=== PATIENT | female | born 2000 ===

== ENCOUNTER 2020-11-09 10:57 | Inpatient (IN) | payer MEDICAID ==
[~2020-11-09] VITALS: Ht 165.1 cm; Wt 90.0 kg
[2020-11-09] MEDS ORDERED: FENTANYL PF 100 MCG/2ML IVPush PRN (12:00)
[2020-11-09] MEDS ORDERED: TERBUTALINE 1 MG/ML, 1ML SQ PRN (12:00)
[2020-11-09] MEDS ORDERED: FENTANYL PF 100 MCG/2ML IV PRN (12:00)
[2020-11-09] MEDS ORDERED: OXYTOCIN 30U/ 0.9% NaCL 500ML 500 ML IV PRN (12:00)
[2020-11-09] MEDS ORDERED: CALCIUM CARBONATE 500 MG TAB.CHEW PO PRN (12:00)
[2020-11-09] MEDS ORDERED: TERBUTALINE 1 MG/ML, 1ML IVPush PRN (12:00)
[2020-11-09] MEDS ORDERED: ONDANSETRON 2MG/ML, 2ML IVPush PRN ×3 (12:00→22:00)
[2020-11-09] MEDS ORDERED: OXYTOCIN 30U/ 0.9% NaCL 500ML 500 ML IV ONE (12:00)
[2020-11-09] MEDS ORDERED: D5%-LACTATED RINGERS 1,000 ML IV SCH (12:00)
[2020-11-09] MEDS ORDERED: NEWBORN KIT ONE (12:06)
[2020-11-09 12:08] LABS: BASOPHILS % (AUTO) 0 % (0-1); EOSINOPHILS % (AUTO) 1 % (1-7); LYMPHOCYTES % (AUTO) 7 % (22-44); MEAN CORPUSCULAR HEMOGLOBIN 29.7 pg (27.0-34.8); MEAN CORPUSCULAR HGB CONC 33.3 g/dL (32.4-35.8); MEAN PLATELET VOLUME 9.9 fL (7.4-10.4); MONOCYTES % (AUTO) 7 % (2-9); NEUTROPHILS % (AUTO) 85 % (42-75); PLATELET COUNT 210 x10^3/uL (130-400); RED BLOOD COUNT 4.62 x10^6/uL (3.82-5.3); RED CELL DISTRIBUTION WIDTH 13.2 % (9.6-15.2)
[2020-11-09 12:14] LABS: ALANINE AMINOTRANSFERASE 16 U/L (12-78); ALBUMIN 2.8 g/dL (3.4-5.0); ANION GAP 6 mmol/L (5-15); BILIRUBIN, DIRECT 0.1 mg/dL (0.1-0.2); CALCIUM 9.4 mg/dL (8.5-10.1); CHLORIDE 105 mmol/L (98-107); CREATININE 0.44 mg/dL (0.55-1.02)
[2020-11-09 12:15] LABS: ALKALINE PHOSPHATASE 273 U/L (45-117); BILIRUBIN,TOTAL 0.4 mg/dL (0.2-1.0); TOTAL PROTEIN 7.3 g/dL (6.4-8.2)
[2020-11-09] MEDS: LACTATED RINGERS 1,000 ML IV SCH ×2 (12:27→14:53)
[2020-11-09 12:28] LABS: MICROSCOPIC NOT IND
[2020-11-09 12:32] LABS: AMPHETAMINE SCREEN, URINE Negative (Negative); BARBITURATE SCREEN, URINE Negative (Negative); BENZODIAZEPINE SCREEN, URINE Negative (Negative); CANNABINOID SCREEN, URINE Positive (Negative); COCAINE SCREEN, URINE Negative (Negative); METHADONE SCREEN, URINE Negative (Negative); OPIATE SCREEN, URINE Negative (Negative); PROTEIN/CREATININE RATIO,URINE 503 (0-200); TOTAL PROTEIN,URINE RANDOM 23 mg/dL (0-12)
[2020-11-09 12:33] LABS: MD SCAN
[2020-11-09 12:35] VITALS: BP 135/91
[2020-11-09] MEDS ORDERED: FENTANYL/BUPIV./NS/PF 250 ML EPIDCONT ONE (14:53)
[2020-11-09] MEDS ORDERED: BUPIVACAINE 0.25% ONE (14:53)
[2020-11-09] MEDS ORDERED: NALOXONE 0.4 MG/ML, 1ML IVPush PRN (15:30)
[2020-11-09] MEDS ORDERED: DIPHENHYDRAMINE 50 MG/ML, 1ML IVPush PRN (15:30)
[2020-11-09] MEDS ORDERED: LACTATED RINGERS 1,000 ML IV SCH ×3 (15:30→20:30)
[2020-11-09] MEDS ORDERED: EPHEDRINE 50 MG/ML, 1ML IVPush PRN (15:30)
[2020-11-09] MEDS ORDERED: FENTANYL/BUPIV./NS/PF 250 ML EPIDCONT SCH (15:30)
[2020-11-09] MEDS ORDERED: LACTATED RINGERS 1,000 ML IVBOLUS PRN (16:30)
[2020-11-09] MEDS ORDERED: LACTATED RINGERS 1,000 ML INTUTE SCH (18:30)
[2020-11-09] MEDS ORDERED: LACTATED RINGERS 1,000 ML INTUTE PRN (18:30)
[2020-11-09] MEDS ORDERED: METOCLOPRAMIDE 5 MG/ML, 2ML ONE (18:35)
[2020-11-09] MEDS ORDERED: SODIUM CITRATE/CITRIC ACID 15 ML UDC ONE (18:35)
[2020-11-09] MEDS ORDERED: LIDOCAINE/MPF 2%-EPI 1:200K, 20 ML ONE (18:44)
[2020-11-09] MEDS ORDERED: AZITHROMYCIN 500 MG in SODIUM CHLORIDE 0.9% 250 ML IV ONE (19:00)
[2020-11-09] MEDS ORDERED: LACTATED RINGERS 1,000 ML IVBOLUS ONE (19:00)
[2020-11-09] MEDS ORDERED: SODIUM CITRATE/CITRIC ACID 30 ML UDC PO ONE (19:00)
[2020-11-09] MEDS ORDERED: METOCLOPRAMIDE 5 MG/ML, 2ML IV ONE (19:00)
[2020-11-09] MEDS ORDERED: morphine SULFATE/PF 0.5 MG/ML, 10ML ONE (19:19)
[2020-11-09] MEDS ORDERED: CEFAZOLIN 1,000 MG ONE (19:20)
[2020-11-09] MEDS ORDERED: ONDANSETRON 2MG/ML, 2ML ONE (19:20)
[2020-11-09] MEDS ORDERED: DEXAMETHASONE 4 MG/ML, 1ML ONE (19:20)
[2020-11-09] MEDS ORDERED: SODIUM CHLORIDE FLUSH 0.9%, 20 ML ONE (19:20)
[2020-11-09] MEDS ORDERED: OXYTOCIN 10 UNITS/ML, 1ML ONE (19:20)
[2020-11-09] MEDS ORDERED: KETOROLAC 30 MG/1 ML ONE (19:20)
[2020-11-09] MEDS ORDERED: OXYTOCIN 30U/ 0.9% NaCL 500ML 500 ML IV SCH (20:30)
[2020-11-09] MEDS ORDERED: KETOROLAC 30 MG/1 ML IV SCH (20:30)
[2020-11-09] MEDS ORDERED: SIMETHICONE 80 MG CHEW TAB PO PRN (20:30)
[2020-11-09] MEDS ORDERED: ONDANSETRON 2MG/ML, 2ML IV PRN (20:30)
[2020-11-09] MEDS ORDERED: BISACODYL 10 MG SUPP PR PRN (20:30)
[2020-11-09] MEDS ORDERED: MISOPROSTOL 200 MCG TABLET PR PRN (20:30)
[2020-11-09] MEDS ORDERED: GLYCERIN ADULT SUPP PR PRN (20:30)
[2020-11-09] MEDS ORDERED: METOCLOPRAMIDE 5 MG/ML, 2ML IV PRN (20:30)
[2020-11-09] MEDS ORDERED: ACETAMINOPHEN 325 MG TABLET PO PRN ×2 (20:30)
[2020-11-09 21:58] VITALS: BP 118/70
[2020-11-09] MEDS ORDERED: morphine SULFATE 10 MG/ML, 1ML IVPush PRN ×2 (22:00)
[2020-11-09] MEDS ORDERED: OXYcodone/APAP 5/325MG TABLET PO PRN (22:00)
[2020-11-09] MEDS ORDERED: NO SEDATIVES, TRANQUILIZERS OR ANTIEMETICS XX SCH (22:00)
[2020-11-09] MEDS ORDERED: NALOXONE 0.4 MG/ML, 1ML IV PRN (22:00)
[2020-11-09] MEDS: OXYcodone/APAP 5/325MG TABLET PO PRN (23:01)
[2020-11-09 23:41] VITALS: BP 149/83
[2020-11-10] MEDS: DIPHENHYDRAMINE 50 MG/ML, 1ML IV PRN ×3 (00:55→13:49)
[2020-11-10] MEDS: KETOROLAC 30 MG/1 ML IVPush SCH ×4 (01:58→20:13)
[2020-11-10 03:42] VITALS: BP 135/75
[2020-11-10 03:43] LABS: BASOPHILS % (AUTO) 0 % (0-1); EOSINOPHILS % (AUTO) 0 % (1-7); LYMPHOCYTES % (AUTO) 3 % (22-44); MEAN CORPUSCULAR HEMOGLOBIN 29.3 pg (27.0-34.8); MEAN CORPUSCULAR HGB CONC 32.6 g/dL (32.4-35.8); MEAN PLATELET VOLUME 9.8 fL (7.4-10.4); MONOCYTES % (AUTO) 5 % (2-9); NEUTROPHILS % (AUTO) 91 % (42-75); PLATELET COUNT 201 x10^3/uL (130-400); RED BLOOD COUNT 3.92 x10^6/uL (3.82-5.3)
[2020-11-10 04:08] LABS: MD SCAN
[2020-11-10] MEDS: OXYcodone/APAP 5/325MG TABLET PO PRN ×4 (06:09→22:37)
[2020-11-10 08:00] VITALS: BP 112/64
[2020-11-10] MEDS: PRENATAL VIT/IRON/FA 1 EACH TABLET PO SCH (08:05)
[2020-11-10] MEDS: DOCUSATE 100 MG CAPSULE PO PRN ×2 (08:05→20:15)
[2020-11-10 12:00] VITALS: BP 118/74
[2020-11-10 16:30] VITALS: BP 107/73
[2020-11-10 19:23] VITALS: BP 127/72
[2020-11-10] MEDS ORDERED: DIPHENHYDRAMINE 50 MG/ML, 1ML ONE (20:08)
[2020-11-10] MEDS ORDERED: DIPHENHYDRAMINE 25 MG CAPSULE PO PRN (21:00)
[2020-11-11] MEDS: IBUPROFEN 600 MG TABLET PO PRN ×2 (01:55→08:24)
[2020-11-11] MEDS: OXYcodone/APAP 5/325MG TABLET PO PRN ×2 (02:39→06:48)
[2020-11-11 07:51] VITALS: BP 121/76
[2020-11-11 07:55] VITALS: BP 121/76
[2020-11-11] MEDS: DOCUSATE 100 MG CAPSULE PO PRN (08:24)
[2020-11-11] MEDS: PRENATAL VIT/IRON/FA 1 EACH TABLET PO SCH (08:24)
[2020-11-11] MEDS ORDERED: IBUP-1222 PO (09:17)
[2020-11-11] MEDS ORDERED: OXYC1TAB14 PO (09:17)
== END 2020-11-11 11:25 | disposition home or self-care (01) | DRG 787 ==
LOC: LDOP 10:57 → LDIP 11:57 → 2NW 21:35
PROVIDERS: ADMIT Obstetrics & Gynecology; ATTEND Obstetrics & Gynecology
PROC: 10D00Z1 Extraction of Products of Conception, Low, Open Approach (ICD-10-PCS; principal; 2020-11-09)
DX: O69.81X0 Labor and delivery complicated by cord around neck, without compression, not applicable or unspecified (principal); O99.324 Drug use complicating childbirth; O13.4 Gestational [pregnancy-induced] hypertension without significant proteinuria, complicating childbirth; J45.909 Unspecified asthma, uncomplicated; O77.0 Labor and delivery complicated by meconium in amniotic fluid; Z20.822 Contact with and (suspected) exposure to COVID-19; Z37.0 Single live birth; Z3A.40 40 weeks gestation of pregnancy; F12.90 Cannabis use, unspecified, uncomplicated; O99.52 Diseases of the respiratory system complicating childbirth
CPT/HCPCS: 36415; 80053; 80307; 81003; 82248; 82570; 84156; 84550; 85025; 86592; 86850; 86900; 87086; G0378; J0456; J0690; J1100; J1885; J2274; J2405; J3010; J1200; J2590; J2765; J3105; J7050; J7120; Q0163